=== PATIENT | male | born 1985 | race Caucasian/White ===

== ENCOUNTER 2020-03-17 09:23 | Emergency (ER) | payer OTHER ==
[~2020-03-17] VITALS: Ht 175.3 cm; Wt 90.7 kg
[2020-03-17] MEDS ORDERED: BACTRIM DS TAB1 EACH PO (10:08)
[2020-03-17] MEDS ORDERED: PREDNISONE 20 M20 M1 PO (10:08)
[2020-03-17 10:25] VITALS: BP 139/70
== END 2020-03-17 10:25 | disposition home or self-care (01) ==
LOC: M.ERS 09:23
DX: L25.9 Unspecified contact dermatitis, unspecified cause (principal)

== ENCOUNTER 2020-04-02 19:55 | Emergency (ER) | payer OTHER ==
[~2020-04-02] VITALS: Ht 175.3 cm; Wt 86.2 kg
[~2020-04-02 19:55] MED LIST: BACTRIM DS TAB1 EACH PO; PREDNISONE 20 M20 M1 PO
[2020-04-02 20:50] LABS: ABSOLUTE BASOPHILS 0.1 thou/uL (0.0-0.2); ABSOLUTE EOSINOPHILS 0.7 thou/uL (0.0-0.7); ABSOLUTE LYMPHOCYTES 1.4 thou/uL (0.8-5.3); ABSOLUTE MONOCYTES 0.7 thou/uL (0.0-1.2); ABSOLUTE NEUTROPHILS 6.1 thou/uL (1.6-8.1); BASOPHILS 0.8 %; EOSINOPHILS 8.4 %; HEMATOCRIT 36.3 % (42.0-52.0); HEMOGLOBIN 12.8 gm/dL (14.0-18.0); LYMPHOCYTES 15.2 %; MCH 29.4 pg (26.0-34.0); MCHC 35.2 g/dL (28.0-37.0); MCV 83.5 fL (80.0-100.0); MONOCYTES 7.5 %; MPV 7.7 fl. (7.2-11.1); NUCLEATED RBCS 0 /100WBC; PLATELET COUNT* 241 thou/uL (150-400); POLYS 68.1 %; RBC 4.35 mil/uL (4.50-6.00); RDW-CV 13.6 % (10.5-14.5)
[2020-04-02 20:58] LABS: CREATININE 1.2 mg/dL (0.6-1.3); POTASSIUM 3.3 mmol/L (3.5-5.1)
[2020-04-02 21:08] LABS: ALBUMIN 3.4 g/dL (3.4-5.0); TOTAL BILIRUBIN 0.4 mg/dL (<0.1-1.0); TOTAL PROTEIN 6.5 g/dL (6.4-8.2)
[2020-04-02] MEDS ORDERED: TRIAMCINOLONE A80 G2 TOP (22:24)
[2020-04-02 22:33] VITALS: BP 120/70
== END 2020-04-02 22:34 | disposition home or self-care (01) ==
LOC: M.ERS 19:55
PROVIDERS: Emergency Medicine
DX: T78.40XA Allergy, unspecified, initial encounter (principal); X58.XXXA Exposure to other specified factors, initial encounter